=== PATIENT | female | born 1960 | race Caucasian/White ===

== ENCOUNTER 2021-04-02 16:06 | Inpatient (IN) | payer MEDICARE ==
[~2021-04-02] VITALS: Ht 167.6 cm; Wt 49.9 kg
[2021-04-02] MEDS ORDERED: SODIUM CHLORIDE 0.9% 500ML 500 ML IV ONE ×2 (16:45→19:00)
[2021-04-02 17:32] LABS: CLARITY,URINE SL CLOUDY (CLEAR); COLOR,URINE AMBER (YELLOW); KETONES,URINE 1+ (NEGATIVE); LEUKOCYTE ESTERASE ,URINE NEGATIVE (NEGATIVE); NITRITE,URINE NEGATIVE (NEGATIVE); PROTEIN,URINE DIPSTICK TRACE (NEGATIVE); URINE UROBILINOGEN >=8 mg/dL (0.2 - 1)
[2021-04-02 17:38] LABS: BASOPHILS % 0.2 % (0.0-1.0); EOSINOPHILS # (AUTO) 0.1 (0.0-0.4); EOSINOPHILS % 0.6 % (0.0-6.0); HEMATOCRIT 51.2 % (34.2-44.1); HEMOGLOBIN 16.4 g/dL (12.0-16.0); LYMPHOCYTES # (AUTO) 3.1 (1.0-3.2); LYMPHOCYTES % 29.7 % (18.0-39.1); MEAN CORPUSCULAR HEMOGLOBIN 28.9 pg (28-32); MEAN CORPUSCULAR VOLUME 90.3 fL (81-99); MONOCYTES # (AUTO) 0.9 (0.2-0.8); MONOCYTES % 8.3 % (4.4-11.3); NEUTROPHILS # (AUTO) 6.3 (2.1-6.9); NEUTROPHILS % 60.6 % (38.7-80.0); PLATELET COUNT 142 x10e3/uL (140-360); RED BLOOD COUNT 5.67 x10e6/uL (3.6-5.1); RED CELL DISTRIBUTION WIDTH 14.4 % (11.7-14.4)
[2021-04-02 17:40] LABS: INR 1.03; PARTIAL THROMBOPLASTIN TIME 24.7 seconds (23.8-35.5); PROTHROMBIN TIME 13.7 seconds (11.9-14.5)
[2021-04-02 17:47] LABS: BACTERIA,URINE RARE /HPF
[2021-04-02 17:49] LABS: ALBUMIN 2.8 g/dL (3.5-5.0); ALBUMIN/GLOBULIN RATIO 0.6 (0.8-2.0); ANION GAP 18.1 mmol/L (8-16); CALCIUM 8.7 mg/dL (8.4-10.2); CREATININE, SERUM 0.7 mg/dL (0.57-1.11); POTASSIUM 4.1 mmol/L (3.5-5.1)
[2021-04-02] MEDS ORDERED: IOPAMIDOL 370 MG/ML 200 ML INFUS..BTL INJ ONE (18:17)
[2021-04-02] MEDS ORDERED: SODIUM CHLORIDE 0.9% 50ML 50 ML ONE (18:17)
[2021-04-02] MEDS ORDERED: CEFEPIME 1 GM in SODIUM CHLORIDE 0.9% 50ML 50 ML IV ONE (19:00)
[2021-04-02] MEDS ORDERED: OLANZAPINE10 MG PO (19:08)
[2021-04-02] MEDS ORDERED: MIRTAZAPINE15 MG PO (19:08)
[2021-04-02] MEDS ORDERED: DIVALPROEX SOD500 MG PO (19:08)
[2021-04-02] MEDS ORDERED: Vancomycin IV 1 GM in SODIUM CHLORIDE 0.9% 250ML 250 ML IV ONE (19:30)
[2021-04-02] MEDS ORDERED: ONDANSETRON HCL INJ 2MG/ML 2ML 2 MG/ML VIAL IV PRN (19:45)
[2021-04-02] MEDS ORDERED: MORPHINE SULFATE INJ 4 MG/ML INJ 1ML IV PRN (19:45)
[2021-04-02] MEDS: SODIUM CHLORIDE 0.9% 1000ML 1,000 ML IV SCH (19:45)
[2021-04-02 21:10] VITALS: BP 140/70
[2021-04-02 22:39] VITALS: BP 140/70
[2021-04-02 22:40] VITALS: BP 140/70
[2021-04-03] VITALS (8 sets, daily range): BP systolic 99–117; BP diastolic 70–90
[2021-04-03] MEDS: SODIUM CHLORIDE 0.9% 1000ML 1,000 ML IV SCH ×3 (03:45→11:53)
[2021-04-03 05:31] LABS: BASOPHILS % 0.3 % (0.0-1.0); EOSINOPHILS # (AUTO) 0.1 (0.0-0.4); EOSINOPHILS % 0.9 % (0.0-6.0); HEMATOCRIT 41.8 % (34.2-44.1); LYMPHOCYTES # (AUTO) 2.8 (1.0-3.2); MEAN CORPUSCULAR HEMOGLOBIN 28.6 pg (28-32); MEAN CORPUSCULAR HGB CONC 31.8 g/dL (31-35); MEAN CORPUSCULAR VOLUME 89.9 fL (81-99); MONOCYTES % 10.8 % (4.4-11.3); NEUTROPHILS # (AUTO) 4.9 (2.1-6.9); NEUTROPHILS % 55.5 % (38.7-80.0); PLATELET COUNT 129 x10e3/uL (140-360); RED BLOOD COUNT 4.65 x10e6/uL (3.6-5.1); RED CELL DISTRIBUTION WIDTH 14.3 % (11.7-14.4)
[2021-04-03 05:41] LABS: HEMOGLOBIN 13.3 g/dL (12.0-16.0)
[2021-04-03 06:03] LABS: ALBUMIN 2.1 g/dL (3.5-5.0); ALBUMIN/GLOBULIN RATIO 0.7 (0.8-2.0); ALKALINE PHOSPHATASE 38 IU/L (40-150); ANION GAP 12.1 mmol/L (8-16); BLOOD UREA NITROGEN 14 mg/dL (7-26); BUN/CREATININE RATIO 24 (6-25); CALCIUM 7.6 mg/dL (8.4-10.2); CARBON DIOXIDE 31 mmol/L (22-29); CHLORIDE 102 mmol/L (98-107); CREATININE, SERUM 0.58 mg/dL (0.57-1.11); EST GLOMERULAR FILTRATION RATE 105 ML/MIN (60-); GLUCOSE 101 mg/dL (74-118); POTASSIUM 3.1 mmol/L (3.5-5.1); SODIUM 142 mmol/L (136-145)
[2021-04-03 06:28] LABS: ALANINE AMINOTRANSFERASE < 6 IU/L (0-55)
[2021-04-03] MEDS ORDERED: POTASSIUM CHLORIDE 10MEQ EA PO ONE (14:35)
[2021-04-03] MEDS: Vancomycin IV 1 GM in SODIUM CHLORIDE 0.9% 250ML 250 ML IV SCH (16:38)
[2021-04-03] MEDS: CEFEPIME 1 GM in SODIUM CHLORIDE 0.9% 50ML 50 ML IV SCH (18:39)
[2021-04-04] VITALS (9 sets, daily range): BP systolic 83–142; BP diastolic 54–107
[2021-04-04] MEDS: CEFEPIME 1 GM in SODIUM CHLORIDE 0.9% 50ML 50 ML IV SCH ×3 (02:00→18:00)
[2021-04-04] MEDS: SODIUM CHLORIDE 0.9% 1000ML 1,000 ML IV SCH ×3 (03:12→22:00)
[2021-04-04] MEDS: Vancomycin IV 1 GM in SODIUM CHLORIDE 0.9% 250ML 250 ML IV SCH ×2 (03:41→16:00)
[2021-04-04] MEDS: COLLAGENASE 5 GM TUBE TOP SCH (12:53)
[2021-04-04] MEDS: BALSAM PERU/CASTOR OIL 60 GM OINT...G. TP SCH (12:57)
[2021-04-04] MEDS ORDERED: ONDANSETRON HCL 4 MG ORAL DISINTEGRATING TAB PO PRN (13:15)
[2021-04-05] VITALS (8 sets, daily range): BP systolic 106–136; BP diastolic 67–93
[2021-04-05] MEDS: CEFEPIME 1 GM in SODIUM CHLORIDE 0.9% 50ML 50 ML IV SCH ×2 (02:07→10:04)
[2021-04-05] MEDS ORDERED: ACETAMINOPHEN 325 MG TAB PO PRN (02:30)
[2021-04-05] MEDS: SODIUM CHLORIDE 0.9% 1000ML 1,000 ML IV SCH ×3 (05:45→21:04)
[2021-04-05] MEDS: Vancomycin IV 1 GM in SODIUM CHLORIDE 0.9% 250ML 250 ML IV SCH (06:00)
[2021-04-05 06:18] LABS: HEMATOCRIT 36.3 % (34.2-44.1); HEMOGLOBIN 11.8 g/dL (12.0-16.0); MEAN CORPUSCULAR HEMOGLOBIN 28.6 pg (28-32); MEAN CORPUSCULAR HGB CONC 32.5 g/dL (31-35); MEAN CORPUSCULAR VOLUME 88.1 fL (81-99); PLATELET COUNT 124 x10e3/uL (140-360); RED BLOOD COUNT 4.12 x10e6/uL (3.6-5.1); RED CELL DISTRIBUTION WIDTH 13.7 % (11.7-14.4)
[2021-04-05 06:41] LABS: ANION GAP 9.2 mmol/L (8-16); CALCIUM 7.2 mg/dL (8.4-10.2); CREATININE, SERUM 0.47 mg/dL (0.57-1.11); POTASSIUM 3.2 mmol/L (3.5-5.1)
[2021-04-05] MEDS ORDERED: POTASSIUM CHLORIDE 10MEQ EA PO NR ×2 (10:00→13:30)
[2021-04-05] MEDS: COLLAGENASE 5 GM TUBE TOP SCH (10:36)
[2021-04-05] MEDS: BALSAM PERU/CASTOR OIL 60 GM OINT...G. TP SCH (10:36)
[2021-04-05] MEDS: AMPICILLIN SOD/SULBACTAM 3GM 100 ML IV SCH ×2 (17:55→23:25)
[2021-04-05] MEDS ORDERED: Vancomycin IV 1 GM in SODIUM CHLORIDE 0.9% 250ML 250 ML IV SCH (18:00)
[2021-04-06 00:14] VITALS: BP 138/80
[2021-04-06] MEDS: SODIUM CHLORIDE 0.9% 1000ML 1,000 ML IV SCH ×2 (03:45→12:12)
[2021-04-06] MEDS: AMPICILLIN SOD/SULBACTAM 3GM 100 ML IV SCH ×3 (05:52→17:59)
[2021-04-06 06:06] LABS: BASOPHILS # (AUTO) 0.1 (0.0-0.1); BASOPHILS % 0.6 % (0.0-1.0); EOSINOPHILS # (AUTO) 0.2 (0.0-0.4); EOSINOPHILS % 2.4 % (0.0-6.0); HEMATOCRIT 35.2 % (34.2-44.1); HEMOGLOBIN 11.5 g/dL (12.0-16.0); LYMPHOCYTES # (AUTO) 3.1 (1.0-3.2); LYMPHOCYTES % 39.3 % (18.0-39.1); MEAN CORPUSCULAR HEMOGLOBIN 29.1 pg (28-32); MEAN CORPUSCULAR HGB CONC 32.7 g/dL (31-35); MEAN CORPUSCULAR VOLUME 89.1 fL (81-99); MONOCYTES # (AUTO) 0.7 (0.2-0.8); MONOCYTES % 9.2 % (4.4-11.3); NEUTROPHILS # (AUTO) 3.8 (2.1-6.9); NEUTROPHILS % 48.1 % (38.7-80.0); PLATELET COUNT 137 x10e3/uL (140-360); RED BLOOD COUNT 3.95 x10e6/uL (3.6-5.1)
[2021-04-06 06:34] LABS: ANION GAP 8.4 mmol/L (8-16); BLOOD UREA NITROGEN < 5 mg/dL (7-26); CALCIUM 7.3 mg/dL (8.4-10.2); CARBON DIOXIDE 27 mmol/L (22-29); CHLORIDE 107 mmol/L (98-107); CREATININE, SERUM 0.49 mg/dL (0.57-1.11); EST GLOMERULAR FILTRATION RATE 128 ML/MIN (60-); GLUCOSE 92 mg/dL (74-118); POTASSIUM 3.4 mmol/L (3.5-5.1); SODIUM 139 mmol/L (136-145)
[2021-04-06 06:49] LABS: BUN/CREATININE RATIO 10 (6-25)
[2021-04-06] MEDS ORDERED: POTASSIUM CHLORIDE 10MEQ EA PO ONE (08:00)
[2021-04-06 08:36] VITALS: BP 129/91
[2021-04-06] MEDS: BALSAM PERU/CASTOR OIL 60 GM OINT...G. TP SCH (11:41)
[2021-04-06] MEDS: COLLAGENASE 5 GM TUBE TOP SCH (11:41)
[2021-04-06 12:12] VITALS: BP 138/85
[2021-04-06 15:49] VITALS: BP 142/83
[2021-04-06 19:00] VITALS: BP 134/75
[2021-04-06 20:25] VITALS: BP 142/83
[2021-04-07] VITALS (10 sets, daily range): BP systolic 111–165; BP diastolic 81–100
[2021-04-07] MEDS: SODIUM CHLORIDE 0.9% 1000ML 1,000 ML IV SCH ×4 (01:28→21:20)
[2021-04-07 05:02] LABS: BASOPHILS # (AUTO) 0.1 (0.0-0.1); EOSINOPHILS # (AUTO) 0.2 (0.0-0.4); EOSINOPHILS % 2.9 % (0.0-6.0); HEMOGLOBIN 13.3 g/dL (12.0-16.0); LYMPHOCYTES # (AUTO) 2.8 (1.0-3.2); LYMPHOCYTES % 40.6 % (18.0-39.1); MEAN CORPUSCULAR HEMOGLOBIN 28.7 pg (28-32); MEAN CORPUSCULAR HGB CONC 31.7 g/dL (31-35); MEAN CORPUSCULAR VOLUME 90.7 fL (81-99); MONOCYTES # (AUTO) 0.6 (0.2-0.8); MONOCYTES % 9.4 % (4.4-11.3); NEUTROPHILS # (AUTO) 3.1 (2.1-6.9); NEUTROPHILS % 45.5 % (38.7-80.0); PLATELET COUNT 152 x10e3/uL (140-360); RED BLOOD COUNT 4.63 x10e6/uL (3.6-5.1); RED CELL DISTRIBUTION WIDTH 14.5 % (11.7-14.4)
[2021-04-07 05:31] LABS: ANION GAP 10.2 mmol/L (8-16); BLOOD UREA NITROGEN < 5 mg/dL (7-26); CALCIUM 7.8 mg/dL (8.4-10.2); CARBON DIOXIDE 24 mmol/L (22-29); CHLORIDE 107 mmol/L (98-107); CREATININE, SERUM 0.52 mg/dL (0.57-1.11); EST GLOMERULAR FILTRATION RATE 119 ML/MIN (60-); GLUCOSE 92 mg/dL (74-118); POTASSIUM 4.2 mmol/L (3.5-5.1); SODIUM 137 mmol/L (136-145)
[2021-04-07 05:40] LABS: BUN/CREATININE RATIO 10 (6-25)
[2021-04-07] MEDS: AMPICILLIN SOD/SULBACTAM 3GM 100 ML IV SCH ×4 (06:00→17:46)
[2021-04-07] MEDS: BALSAM PERU/CASTOR OIL 60 GM OINT...G. TP SCH (09:58)
[2021-04-07] MEDS: COLLAGENASE 5 GM TUBE TOP SCH (09:58)
[2021-04-08] VITALS (8 sets, daily range): BP systolic 116–158; BP diastolic 82–99
[2021-04-08] MEDS: SODIUM CHLORIDE 0.9% 1000ML 1,000 ML IV SCH ×3 (05:08→20:28)
[2021-04-08] MEDS: AMPICILLIN SOD/SULBACTAM 3GM 100 ML IV SCH ×5 (06:00→23:40)
[2021-04-08] MEDS: BALSAM PERU/CASTOR OIL 60 GM OINT...G. TP SCH (09:58)
[2021-04-08] MEDS: COLLAGENASE 5 GM TUBE TOP SCH (09:58)
[2021-04-09 00:40] VITALS: BP 176/95
[2021-04-09] MEDS: SODIUM CHLORIDE 0.9% 1000ML 1,000 ML IV SCH ×2 (05:33→14:27)
[2021-04-09] MEDS: AMPICILLIN SOD/SULBACTAM 3GM 100 ML IV SCH ×3 (05:33→17:00)
[2021-04-09 05:51] VITALS: BP 156/82
[2021-04-09 07:55] VITALS: BP 116/72
[2021-04-09 08:03] VITALS: BP 116/72
[2021-04-09] MEDS ORDERED: LOSARTAN POTASSIUM 25 MG TAB PO SCH (09:00)
[2021-04-09 11:44] VITALS: BP 134/91
[2021-04-09] MEDS: BALSAM PERU/CASTOR OIL 60 GM OINT...G. TP SCH (14:15)
[2021-04-09] MEDS: COLLAGENASE 5 GM TUBE TOP SCH (14:15)
[2021-04-09 15:24] VITALS: BP 142/80
[2021-04-09] MEDS ORDERED: ATORVASTATIN 10 MG TAB PO SCH (21:00)
== END 2021-04-09 18:31 | DRG 593 ==
LOC: ER 16:30 → ERHOLD 20:12 → MED/SURG3 20:38
PROVIDERS: ADMIT Internal Medicine; ATTEND Internal Medicine
PROC: 02HV33Z Insertion of Infusion Device into Superior Vena Cava, Percutaneous Approach (ICD-10-PCS; principal; 2021-04-09)
DX: L89.150 Pressure ulcer of sacral region, unstageable (principal); G93.40 Encephalopathy, unspecified; L03.312 Cellulitis of back [any part except buttock and flank]; E44.0 Moderate protein-calorie malnutrition; Z68.1 Body mass index [BMI] 19.9 or less, adult; E87.2 Acidosis; R55 Syncope and collapse; B95.2 Enterococcus as the cause of diseases classified elsewhere; I10 Essential (primary) hypertension; E11.9 Type 2 diabetes mellitus without complications; E87.5 Hyperkalemia; Z91.81 History of falling; W19.XXXA Unspecified fall, initial encounter; Z20.822 Contact with and (suspected) exposure to COVID-19; F41.9 Anxiety disorder, unspecified; E86.0 Dehydration
CPT/HCPCS: 36415; 36569; 51700; 70450; 71045; 74177; 80048; 80053; 80202; 81001; 82550; 82948; 83605; 83735; 83880; 84484; 85007; 85025; 85027; 85610; 85730; 87040; 87071; 87086; 87186; 87205; 93005; 93306; 93880; 96361; 97139; 99251; 99285; J0295; J0692; J3370; J7030; J7040; J7050; Q9967; U0002